=== PATIENT | male | born 1985 | race Caucasian/White ===

== ENCOUNTER 2017-02-19 21:04 | Emergency (ER) | payer OTHER ==
[~2017-02-19] VITALS: Ht 182.9 cm; Wt 102.3 kg
[2017-02-19 21:22] VITALS: TEMP 36.7; Ht 182.9 cm; Wt 102.3 kg
[2017-02-19] MEDS ORDERED: KETOROLAC TROMETHAMINE 60 MG/2 ML VIAL IM STA (21:40)
[2017-02-19] MEDS ORDERED: XYLOCAINE 1%/SOD BICARB 20 ML VIAL INFIL ONE (21:45)
[2017-02-19] MEDS ORDERED: OXYCODONE IR HOME PACK PO ONE (21:45)
[2017-02-19] MEDS ORDERED: AMOXICIL/CLAVU 875MG HOME PACK PO ONE (21:45)
[2017-02-19] MEDS ORDERED: DOXY1TAB6 PO (22:01)
[2017-02-19] MEDS ORDERED: NYSS/ PO (22:03)
[2017-02-19] MEDS ORDERED: AMOX875T PO (22:10)
[2017-02-19 22:25] VITALS: BP 106/81; PULSE 92; O2SAT 93
--- NOTE | 2017-02-19 22:30 | EMERGENCY ROOM VISIT NOTE ---
History First contact with patient: 21:27 Chief Complaint: WOUND INFECTION Stated Complaint: OPEN WOUND INFECTION, PUSSING History of Present Illness The patient is a 31 year old male who presents to the Emergency Room with complaints of rectal pain with drainage concerns for abscess for the past few days. Patient denies fever, chills, chest pain, dyspnea, abdominal pain, vomiting, diarrhea. No history similar symptoms in the past. Tetanus is current. Review of Systems See HPI for pertinent positives & negatives. A total of 10 systems reviewed and were otherwise negative. Past Medical/Surgical History None Social History Smoking Status: Current Every Day Smoker Alcohol Use: occasionally Drug Use: none Marital Status: in relationship Current/Historical Medications Scheduled Amoxicillin & Pot Clavulanate (Augmentin 875-125 mg), 1 TAB PO BID Doxycycline Hyclate (Doxycycline Hyclate), 100 MG PO BID Nystatin (Nystatin Suspension), 4 ML PO QID Allergies Coded Allergies: No Known Allergies (Unverified , 02/19/17) Physical Exam Vital Signs Date Time Temp Pulse Resp B/P Pulse Ox O2 Delivery O2 Flow Rate FiO2 02/19/17 21:22 36.7 86 16 123/81 96 Room Air Physical Exam VITALS: Vitals are noted on the nurse's note and reviewed by myself. Vital signs stable. GENERAL: Pleasant male, in no acute distress, nondiaphoretic, well-developed well-nourished. SKIN: Capillary reflex less than 2 seconds. HEENT: Normocephalic. PERRLA. EOMI. Nares patent. Mucous membranes moist. Neck is supple without nuchal rigidity. HEART: Regular rate and rhythm without murmurs gallops or rubs. LUNGS: Clear to auscultation bilaterally without wheezes, rales or rhonchi. No retractions or accessory muscle use. ABDOMEN: Positive bowel sounds x 4. Normal tympanic percussion. Soft, nontender, without masses or organomegaly. Jett sign negative. No guarding or rebound tenderness. Rectal exam: pilonidal abscess present with drainage that is erythematous and edematous 4 cm x 4 cm MUSCULOSKELETAL: No gross musculoskeletal defects. NEURO: Patient was alert and oriented to person place and time. Normal sensation to light and sharp touch. . No focal neurological deficits. Medical Decision & Procedures Medications Administered Medications (Trade) Dose Ordered Sig/Tanvir Route Start Time Stop Time Status Last Admin Dose Admin Ketorolac Tromethamine (Toradol Inj) 60 mg NOW STAT IM 02/19/17 21:40 02/19/17 21:42 DC 02/19/17 22:19 60 MG Amoxicillin/ Clavulanate Potassium (Augmentin 875MG Home Pack) 1 homepack UD ONCE PO 02/19/17 21:45 02/19/17 21:46 DC 02/19/17 22:19 1 HOMEPACK Oxycodone HCl (Roxicodone Immediate Rel 5MG Home Pack) 1 homepack UD ONCE PO 02/19/17 21:45 02/19/17 21:46 DC 02/19/17 22:19 1 HOMEPACK Procedure Incision & Drainage Indication: Abscess. Location: Pilonidal abscess Verbal consent was obtained after the risks and benefits were explained, including but not limited to bleeding, scarring, infection, pain, and bone/joint /nerve damage. At this time, the risks of the procedure are less than the risks of NOT performing the procedure. A time out was taken and the correct patient and site identified. The skin was prepped with betadine and a sterile field set. The wound was anesthetized with 10 ml of 1% lidocaine without epinephrine. The abscess cavity was entered with a number 11 blade and bloody purulent material expressed. Copious irrigation was performed using normal saline. The wound was explored for foreign bodies and none found. Debridement was not performed. Packing placed and a sterile dressing applied. Detailed wound care instructions and signs and symptoms of worsening infection reviewed with the patient. No complications and the patient tolerated the procedure well. ED Course Prior records reviewed and summarized as above. Triage Nursing notes reviewed. Additional history obtained from family. The patient's history was concerning for swelling and redness of the skin. Differential diagnosis: Etiologies such as cellulitis, abscess, MRSA infection, DVT, necrotizing fasciitis, dermatitis, drug eruption, as well as others were entertained.. Physical examination: The physical examination was consistent with abscess with surrounding cellulitis ER treatment provided: Augmentin, Toradol, home pack of OxyIR On reassessment the patient felt better. Diagnostics interpreted by me: The labs revealed a wound culture pending This appears to be isolated abscess with surrounding cellulitis. Patient was well-appearing. No fever. He was not vomiting. He was advised to have the wound rechecked and repacked in 2 days. He was advised take antibiotics as directed. He is advised to return to the ER immediately for fever, vomiting, worsening signs or symptoms or as needed.By the evaluation outlined above emergent etiologies such as necrotizing fasciitis, DVT, as well as others were deemed relatively unlikely. The pt informed about the findings as listed above. All questions were answered and pleased with the treatment. Return instructions were outlined and the patient was discharged in stable condition. Outpatient prescription management: Augmentin Referral: The patient was referred back to ER or primary care physician for follow-up in 2 to 3 days for a recheck of the current condition. Medical Decision As above Impression Primary Impression: Pilonidal abscess Departure Information Dispostion Home / Self-Care Condition GOOD Prescriptions Amoxicillin & Pot Clavulanate (Augmentin 875-125 mg) 1 Tab Tab 1 TAB PO BID, #20 TAB Prov: July Castillo .STUART 02/19/17 Forms WORK / SCHOOL INSTRUCTIONS, HOME CARE DOCUMENTATION FORM, IMPORTANT VISIT INFORMATION Patient Instructions My [facility], ED Cyst Pilonidal Infected IandD Additional Instructions Frequently change out outer gauze. Leave inner wicking inside. Amoxicillin Clavulanate (Augmentin) 875mg: Take one pill twice daily for 10 days for your infection. All antibiotics can cause diarrhea. If this occurs and you feel worse or it does not resolve in 1-2 days follow up with your doctor or return to the Emergency Department as this could be signs of serious underlying problems. Any medication can cause an allergic reaction, stop the pills immediately and return to the ER for rash, hives, breathing difficulties, or swelling. Ibuprofen(Motrin, Advil) may be used for fever or pain. Use 600mg every six hours as needed. Take with food. Avoid using more than 2400mg in a 24 hour period. Do not use 2400mg per day for more than three consecutive days without physician direction. Prolonged inappropriate use can lead to stomach upset or ulcers. (AND/OR) Acetaminophen(Tylenol) may be used for fever or pain. Use 1000mg every six hours as needed. Avoid using more than 3000mg in a 24 hour period. Rest and drink plenty of fluids. Continue current medications. Return to the ER for severe pain, persistent fevers, spreading redness, or any worsening of your condition. Follow up with your primary physician or ER within 2-3 days for a recheck of the current condition and wound repacking. Bring the packing material that was given to you in the ER to your follow-up appointment. Do not open this.
== END 2017-02-19 22:25 | disposition home or self-care (01) ==
LOC: C.EDB 21:07 → C.EDD 22:25
DX: L05.01 Pilonidal cyst with abscess (principal); F17.200 Nicotine dependence, unspecified, uncomplicated; Z79.899 Other long term (current) drug therapy

== ENCOUNTER 2017-02-21 13:46 | Emergency (ER) | payer OTHER ==
[~2017-02-21] VITALS: Ht 182.9 cm; Wt 105.0 kg
[~2017-02-21 13:46] MED LIST: AMOX875T PO; DOXY1TAB6 PO; NYSS/ PO
[2017-02-21 13:49] VITALS: BP 130/78; PULSE 98; TEMP 36.7; O2SAT 99; Ht 182.9 cm; Wt 105.0 kg
[2017-02-21] MEDS ORDERED: AMOX875T PO (13:59)
--- NOTE | 2017-02-21 14:23 | EMERGENCY ROOM VISIT NOTE ---
ED Visit Note First contact with patient: 13:57 CHIEF COMPLAINT: Packing removal HISTORY OF PRESENT ILLNESS: This 31-year-old male patient presents to the emergency department ambulatory for packing removal of a pilonidal abscess that was incised and drained 2 days ago. Previous care outlined has been followed without difficulty. The patient has been taking antibiotics as prescribed. REVIEW OF SYSTEMS: A 6 system review of systems was completed with positives and pertinent negatives listed in the HPI. ALLERGIES: No known drug allergies MEDICATIONS: No chronic medications PMH: Unchanged from previous visit. PHYSICAL EXAM: Vital Signs reviewed, see Nurse's notes. Patient is afebrile, vital signs stable. GENERAL: This is a 31-year-old male, awake, alert, well appearing, no acute distress SKIN: Packing is in place over the gluteal crest. There is no continued purulent discharge. The redness has decreased. The wound is healing well. NEURO: No sensory or motor deficits noted. EMERGENCY DEPARTMENT COURSE AND DECISION MAKING: I examined the patient. The packing was removed from the pilonidal cyst. The wound is healing well. An additional small amount of packing was placed in the wound and will be removed by the patient's significant other in 2-3 days. He was instructed to follow-up with Gen. surgery as needed for removal of the pocket. Discharge instructions reviewed. Discharged in stable condition. DIAGNOSIS: Packing removal Current/Historical Medications Scheduled Amoxicillin & Pot Clavulanate (Augmentin 875-125 mg), 1 TAB PO BID Nystatin (Nystatin Suspension), 4 ML PO QID Allergies Coded Allergies: No Known Allergies (Unverified , 02/19/17) Vital Signs Date Time Temp Pulse Resp B/P Pulse Ox O2 Delivery O2 Flow Rate FiO2 02/21/17 13:49 36.7 98 18 130/78 99 Room Air Departure Information Impression Primary Impression: Change or removal of wound packing Dispostion Home / Self-Care Condition GOOD Referrals No Doctor, Assigned (PCP) Patient Instructions My [facility] Additional Instructions Remove the remaining packing in 3 days. Continue the antibiotic as prescribed. For pain control, you can use the following [id number] medicines (if >12 yo): - Regular strength (325mg/tab) Tylenol (acetaminophen) 2 tabs every 4-6 hours as needed. Do not exceed 12 tablets in a 24 hour period. Avoid taking more than 4 grams (4000 mg) of Tylenol per day. This includes any other sources of acetaminophen you may take on a regular basis. - Regular strength (200 mg/tab) Advil (ibuprofen) 1-2 tabs every 4-6 hours as needed. Do not exceed a dose of 3200 mg per day.
== END 2017-02-21 14:35 | disposition home or self-care (01) ==
LOC: C.EDB 13:48 → C.EDD 14:35
DX: Z48.02 Encounter for removal of sutures (principal)

== ENCOUNTER → 2017-09-03 | Outpatient (CLI) | payer OTHER ==
[~2017-09-03] MED LIST changes: -DOXY1TAB6 PO
[2017-09-03 15:06] LABS: URINE APPEARANCE CLEAR (CLEAR); URINE BILIRUBIN NEG (NEG); URINE COLOR YELLOW; URINE NITRITE NEG (NEG); URINE SPECIFIC GRAVITY 1.043 (1.000-1.030); UROBILINOGEN NEG (NEG)
[2017-09-03 15:21] LABS: ALB/GLOB RATIO 1.2 (0.9-2); ALKALINE PHOSPHATASE 144 U/L (45-117); ALT/SGPT 47 U/L (12-78); AMYLASE 14 U/L (25-115); AST/SGOT 19 U/L (15-37); BLOOD UREA NITROGEN 9 mg/dl (7-18); BUN/CREATININE RATIO 9.8 (10-20); CALCIUM 9.5 mg/dl (8.5-10.1); CARBON DIOXIDE 28 mmol/L (21-32); CHLORIDE 95 mmol/L (98-107); CREATININE 0.95 mg/dl (0.60-1.40); GLUCOSE 440 mg/dl (70-99); POTASSIUM 4.1 mmol/L (3.5-5.1); SODIUM 128 mmol/L (136-145)
[2017-09-03 15:26] LABS: MANUAL MICROSCOPIC REQUIRED? YES; REVIEW REQ? NO
[2017-09-03 15:32] LABS: BETA-HYDROXYBUTYRATE 7.77 mg/dL (0.2-2.81)
[2017-09-03 15:39] LABS: URINE BACTERIA NEG (NEG); URINE RBC 0-4 /hpf (0-4)
[2017-09-04 06:24] LABS: ESTIMATED AVERAGE GLUCOSE 433 mg/dl; HA1C FLAG Normal (Normal)
== END | disposition home or self-care (01) ==
LOC: C.LAB 14:00
PROVIDERS: ATTEND Family Medicine
DX: K85.91 Acute pancreatitis with uninfected necrosis, unspecified (principal)

== ENCOUNTER 2017-09-10 11:57 | Inpatient (IN) | payer OTHER ==
[~2017-09-10] VITALS: Ht 182.9 cm; Wt 83.1 kg
[2017-09-10] MEDS ORDERED: INSU1.2I SQ (12:37)
[2017-09-10] MEDS ORDERED: NVLG SQ (12:37)
[2017-09-10] MEDS ORDERED: SODIUM CHLORIDE 0.9% 1000ML 1,000 ML IV STA (12:41)
[2017-09-10] MEDS ORDERED: SODIUM CHLORIDE 0.9% 500ML 500 ML IV STA (12:41)
[2017-09-10 13:02] LABS: BASO % 0.6 %; BASO ABS # 0.04 K/uL (0-0.2); COMPLETE YES; EOS % 5.1 %; HEMATOCRIT 42.4 % (42-52); IG% 0.2 %; LYMPH % 31.6 %; LYMPH ABS # 2.09 K/uL (1.2-3.4); MEAN CELL VOLUME 84.8 fL (80-100); MEAN CORPUSCULAR HEMOGLOBIN 30.8 pg (25-34); MEAN CORPUSCULAR HGB CONC 36.3 g/dl (32-36); NEUT % 57.5 %; PLATELET COUNT 136 K/uL (130-400); WHITE BLOOD COUNT 6.62 K/uL (4.8-10.8)
--- NOTE | 2017-09-10 13:03 | EMERGENCY ROOM VISIT NOTE ---
History Report prepared by Donte: Linda Escobedo Under the Supervision of: Dr. Mayra Mcmahan M.D. First contact with patient: 12:04 Chief Complaint: HYPERGLYCEMIA Stated Complaint: BLOOD SUGAR OVER 600, NO SODIAM IN BODY History of Present Illness The patient is a 32 year old male who presents to the Emergency Room with complaints of persistent hyperglycemia that began yesterday. The patient states that for the past several months he has not been feeling normal. He reports excessive thirst, polyuria, and dizziness. The patient states that he had blood work done recently and was found to be hyponatremic and hyperglycemic. He reports that his blood glucose was up over 600 mg/dL. The patient states that he was diagnosed with diabetes yesterday and was just started on Insulin. He states that his blood glucose levels were running around 300 mg/dL last evening. The patient states that this morning his left hand has been feeling numb. He denies any chest pain, abdominal pain, or vomiting. The patient states that he did not eat this morning. Source of History: patient Onset: yesterday Position: other (global) Symptom Intensity: 600 mg/dL Quality: other (hyperglycemia) Timing: other (persistent) Associated Symptoms: + numbness (left hand), No chest pain, No vomiting, No abdominal pain Review of Systems See HPI for pertinent positives & negatives. A total of 10 systems reviewed and were otherwise negative. Past Medical & Surgical Medical Problems: (1) Hyperglycemia due to type 2 diabetes mellitus Family History Diabetes mellitus Hypertension Social History Smoking Status: Current Every Day Smoker Alcohol Use: none Drug Use: none Marital Status: in relationship Housing Status: lives with significant other Occupation Status: unemployed Current/Historical Medications Scheduled Insulin Aspart (Novolog), SQ TIDM Insulin Glargine (Toujeo Solostar), 10 UNITS SQ HS Allergies Coded Allergies: No Known Allergies (Unverified , 09/10/17) Physical Exam Vital Signs Date Time Temp Pulse Resp B/P (MAP) Pulse Ox O2 Delivery O2 Flow Rate FiO2 09/10/17 14:25 82 20 108/70 99 09/10/17 13:42 83 09/10/17 12:00 36.7 98 20 119/81 97 Room Air Physical Exam Vital signs reviewed. General: Well-appearing male, in no significant distress. HEENT: No scleral icterus, PERRLA, dry mucous membranes, neck supple. Atraumatic. Cardiovascular: Regular rate and rhythm, no extra sounds. Pulmonary: Clear to auscultation bilaterally, normal work of breathing. Abdomen: Soft, nontender, nondistended, positive bowel sounds. Musculoskeletal: Atraumatic, no peripheral edema. Neurologic: Patient awake alert and oriented x 3, full strength in all 4 extremities. Cranial nerves 2 through 12 grossly intact. Skin: Warm, dry, no rash Medical Decision & Procedures ER Provider Diagnostic Interpretation: X-ray results as stated below per interpretation by me and the radiologist: CHEST ONE VIEW PORTABLE CLINICAL HISTORY: 32 years-old Male presenting with hyperglycemia. TECHNIQUE: Portable upright AP view of the chest was obtained. COMPARISON: None. FINDINGS: Cardiomediastinal silhouette normal. Lungs and pleural spaces clear. Osseous structures normal. Upper abdomen normal. IMPRESSION: 1. No acute cardiopulmonary disease. Electronically signed by: Karlo Waggoner M.D. 09/10/2017 1:15 PM Dictated Date/Time: 09/10/2017 1:12 PM Laboratory Results 09/10/17 12:51 Red Blood Count 5.00, Mean Corpuscular Volume 84.8, Mean Corpuscular Hemoglobin 30.8, Mean Corpuscular Hemoglobin Concent 36.3, Mean Platelet Volume 10.0, Neutrophils (%) (Auto) 57.5, Lymphocytes (%) (Auto) 31.6, Monocytes (%) (Auto) 5.0, Eosinophils (%) (Auto) 5.1, Basophils (%) (Auto) 0.6, Neutrophils # (Auto) 3.81, Lymphocytes # (Auto) 2.09, Monocytes # (Auto) 0.33, Eosinophils # (Auto) 0.34, Basophils # (Auto) 0.04 09/10/17 12:51 Test 09/10/17 12:41 09/10/17 12:51 09/10/17 14:08 White Blood Count 6.62 K/uL (4.8-10.8) Red Blood Count 5.00 M/uL (4.7-6.1) Hemoglobin 15.4 g/dL (14.0-18.0) Hematocrit 42.4 % (42-52) Mean Corpuscular Volume 84.8 fL (80-100) Mean Corpuscular Hemoglobin 30.8 pg (25-34) Mean Corpuscular Hemoglobin Concent 36.3 g/dl (32-36) Platelet Count 136 K/uL (130-400) Mean Platelet Volume 10.0 fL (7.4-10.4) Neutrophils (%) (Auto) 57.5 % Lymphocytes (%) (Auto) 31.6 % Monocytes (%) (Auto) 5.0 % Eosinophils (%) (Auto) 5.1 % Basophils (%) (Auto) 0.6 % Neutrophils # (Auto) 3.81 K/uL (1.4-6.5) Lymphocytes # (Auto) 2.09 K/uL (1.2-3.4) Monocytes # (Auto) 0.33 K/uL (0.11-0.59) Eosinophils # (Auto) 0.34 K/uL (0-0.5) Basophils # (Auto) 0.04 K/uL (0-0.2) RDW Standard Deviation 38.5 fL (36.4-46.3) RDW Coefficient of Variation 12.6 % (11.5-14.5) Immature Granulocyte % (Auto) 0.2 % Immature Granulocyte # (Auto) 0.01 K/uL (0.00-0.02) Anion Gap 7.0 mmol/L (3-11) Est Creatinine Clear Calc Drug Dose 108.8 ml/min Estimated GFR () 105.9 Estimated GFR (Non- 91.4 BUN/Creatinine Ratio 21.3 (10-20) Calcium Level 8.5 mg/dl (8.5-10.1) Magnesium Level 2.1 mg/dl (1.8-2.4) Total Bilirubin 0.4 mg/dl (0.2-1) Direct Bilirubin < 0.1 mg/dl (0-0.2) Aspartate Amino Transf (AST/SGOT) 21 U/L (15-37) Alanine Aminotransferase (ALT/SGPT) 45 U/L (12-78) Alkaline Phosphatase 194 U/L (45-117) Total Protein 6.8 gm/dl (6.4-8.2) Albumin 3.5 gm/dl (3.4-5.0) Beta-Hydroxybutyric Acid 1.80 mg/dL (0.2-2.81) Thyroid Stimulating Hormone (TSH) 1.200 uIu/ml (0.300-4.500) Venous Blood pH 7.36 (7.36-7.41) Venous Blood Partial Pressure CO2 47 mmHg (38.0-50.0) Venous Blood Partial Pressure O2 41 mmHg Venous Blood HCO3 26 mmol/L Venous Blood Oxygen Saturation 73.8 % Venous Blood Base Excess 0.2 mEq/L Laboratory results per my review. Medications Administered Medications (Trade) Dose Ordered Sig/Tanvir Route Start Time Stop Time Status Last Admin Dose Admin Sodium Chloride 500 ml @ 999 mls/hr Q31M STAT IV 09/10/17 12:41 09/10/17 13:11 DC 09/10/17 13:07 999 MLS/HR Sodium Chloride 1,000 ml @ 200 mls/hr Q5H STAT IV 09/10/17 12:41 09/10/17 17:40 09/10/17 13:08 200 MLS/HR ECG Indication: other (hyperglycemia) Rate (beats per minute): 77 Rhythm: normal sinus Findings: no acute ischemic change, no ectopy, other (J point elevation consistent with early repolarization) ED Course 1250: Past medical records reviewed. The patient was evaluated in room C1B. A complete history and physical examination was performed. 1241: Ordered Sodium Chloride 1000 ml @ 200 mls/hr IV, Sodium Chloride 500 ml @ 999 mls/hr IV. 1354: Ordered Insulin Human Regular 1 ea Protocol NA. 1409: I reevaluated the patient and he is resting comfortably. I discussed the test results with him and I discussed the treatment plan. He verbalized complete understanding and agreement. He is going to be evaluated for further treatment. 1413: I discussed the patients case with OWEN Gomez. He is going to evaluate the patient for further treatment. 1415: Ordered Glucagon 1 mg SQ, Dextrose 50 ml IV, Glucose 1 tabs PO, Glucose PO , Insulin Human Regular 250 units/Sodium Chloride 252.5 ml @ 0 mls/hr IV, Insulin Human Regular 2 unit IV. Medical Decision Differential diagnosis: Etiologies such as gastroenteritis, food borne illness, infections, appendicitis , diverticulitis, inflammatory bowel disease, obstruction, GI bleed, biliary pathology, DKA, as well as others were entertained. Medication Reconcilliation Current Medication List: was personally reviewed by me Consults Time Called: 1411 Consulting Physician: OWEN Gomez Returned Call: 1413 I discussed the patients case with TREVER Gomez. He is going to evaluate the patient for further treatment. Impression Primary Impression: Diabetes mellitus, new onset Additional Impressions: Hyperglycemia Hyponatremia Scribe Attestation The scribe's documentation has been prepared under my direction and personally reviewed by me in its entirety. I confirm that the note above accurately reflects all work, treatment, procedures, and medical decision making performed by me. Departure Information Dispostion Being Evaluated By Hospitalist Referrals Vinod Sanchez M.D. (PCP) Problem Qualifiers
--- NOTE | 2017-09-10 13:16 | DIAGNOSTIC IMAGING REPORT ---
CHEST ONE VIEW PORTABLE CLINICAL HISTORY: 32 years-old Male presenting with hyperglycemia. TECHNIQUE: Portable upright AP view of the chest was obtained. COMPARISON: None. FINDINGS: Cardiomediastinal silhouette normal. Lungs and pleural spaces clear. Osseous structures normal. Upper abdomen normal. IMPRESSION: 1. No acute cardiopulmonary disease. Electronically signed by: Karlo Waggoner M.D. 09/10/2017 1:15 PM Dictated Date/Time: 09/10/2017 1:12 PM
[2017-09-10 13:49] LABS: ALT/SGPT 45 U/L (12-78); AST/SGOT 21 U/L (15-37); BLOOD UREA NITROGEN 23 mg/dl (7-18); BUN/CREATININE RATIO 21.3 (10-20); CALCIUM 8.5 mg/dl (8.5-10.1); CARBON DIOXIDE 27 mmol/L (21-32); CHLORIDE 90 mmol/L (98-107); CREATININE 1.07 mg/dl (0.60-1.40); GLUCOSE 778 mg/dl (70-99); MAGNESIUM 2.1 mg/dl (1.8-2.4); SODIUM 124 mmol/L (136-145)
[2017-09-10] MEDS ORDERED: INSULIN IV INFUSION PROTOCOL STA ×2 (13:54→14:21)
[2017-09-10 13:56] LABS: ALKALINE PHOSPHATASE 194 U/L (45-117)
[2017-09-10] MEDS ORDERED: MODERATE STRESS LEVEL ONE ×2 (14:00→14:30)
[2017-09-10] MEDS ORDERED: HHS GOAL RANGE 250-350 mg/dl ONE ×2 (14:00→14:30)
[2017-09-10] MEDS: INSULIN REGULAR 250 UNITS in SODIUM CHLORIDE 0.9% 250ML 250 ML IV SCH ×7 (14:15→23:38)
[2017-09-10] MEDS ORDERED: GLUCAGON FOR INJ 1 MG VIAL SQ PRN (14:15)
[2017-09-10] MEDS ORDERED: DEXTROSE 50% 50 ML SYR IV PRN (14:15)
[2017-09-10] MEDS ORDERED: GLUCOSE 40% GEL 15 GM TUBE PO PRN (14:15)
[2017-09-10] MEDS ORDERED: GLUCOSE 10 TABS/TUBE PO PRN (14:15)
[2017-09-10] MEDS ORDERED: NovoLIN R BOLUS FROM BAG IV ONE (14:15)
[2017-09-10 14:20] LABS: VEN BLD GAS O2 SATURATION 73.8 %; VEN BLOOD GAS BASE EXCESS 0.2 mEq/L
[2017-09-10] MEDS ORDERED: ACETAMINOPHEN 325 MG TAB PO PRN (14:30)
[2017-09-10] MEDS ORDERED: ONDANSETRON INJ 2 MG/ML 2 ML VIAL IV PRN (14:30)
--- NOTE | 2017-09-10 14:33 | History and Physical ---
History & Physical Date & Time of Service: Sep 10, 2017 at 14:30 Chief Complaint: Blood Sugar Over 600, No Sodium In Body Primary Care Physician: Vinod Sanchez M.D. History of Present Illness Source: patient, partner This is a 32 yo M with PMHx of ruptured pseudocyst 2 yrs ago, tobacco abuse ( smoke cigarettes 1/2-3/4 ppd x 15 years), marijuana abuse, and new diagnosis of DM II after routine follow up with his PCP, Dr. Sanchez on 09/09/17. Pt notes he has lost ~ 50 lbs in the past 6 months despite a hearty appetite, and admitted to experiencing polydipsia and polyuria. Labs were drawn last Saturday which indicated a new diagnosis of DM. He was started on ISS with Novolog flexpen and Toujeo 5 U QHS yesterday. The patient notes after dinner last night he took 20 U of Novolog, and then Toujeo 5 U as instructed QHS. This morning his glucometer said "go to hospital" as reading was too high. He did take Novolog 20 U this morning, and had not eaten anything. His girlfriend who is present at bedside brought him to the ER after instructions from his PCPs office. He feels well overall currently, just slightly tired. Glucose = 778 upon admission although no AG. Here in the ER the patient was started on insulin gtt and IVFs at 200mL/hr. Ya=114 CBC wnl Alk phose noted to be elevated at 194 Past Medical/Surgical History Medical Problems: (1) Diabetes mellitus, new onset (2) Hyponatremia Surgical Hx: Pseudocyst of pancreas rupture, internal bleeding, and laproscopic repair 2 years ago requiring 19 day hospital stay at [facility] Cholecystectomy Family History Diabetes mellitus GRANDMOTHER FH: HTN (hypertension) FATHER FH: hyperlipidemia FATHER FHx: heart disease FATHER Hypertension Social History Smoking Status: Current Every Day Smoker Smokeless Tobacco Use: No Alcohol Use: none Drug Use: none, marijuana Marital Status: in relationship Housing status: lives with significant other Occupational Status: unemployed Multi-Drug Resistant Organisms History of MDRO: No Allergies Coded Allergies: No Known Allergies (Unverified , 09/10/17) Home Medications Scheduled Insulin Aspart (Novolog), SQ TIDM Insulin Glargine (Toujeo Solostar), 10 UNITS SQ HS Review of Systems Constitutional: + weight loss (50 lbs in 6 mo), + fatigue, No fever, No chills , No sweats Eyes: No worsening of vision, No redness ENT: No hearing loss, No trouble swallowing Respiratory: No cough, No sputum, No wheezing, No shortness of breath, No dyspnea on exertion Cardiovascular: No chest pain, No edema, No claudication Abdomen: No pain, No nausea, No vomiting, No diarrhea, No constipation Musculoskeletal: No joint pain, No swelling, No calf pain Genitourinary - Male: No hematuria Neurologic: No numbness/tingling, No balance problems Psychiatric: No depression symptoms Endocrine: No fatigue Integumentary: No rash, No itch Physical Exam Vital Signs Date Time Temp Pulse Resp B/P (MAP) Pulse Ox O2 Delivery O2 Flow Rate FiO2 09/10/17 13:42 83 09/10/17 12:00 36.7 98 20 119/81 97 Room Air General Appearance: WD/WN, no apparent distress Head: normocephalic, atraumatic Eyes: PERRL, EOMI ENT: hearing grossly normal, pharynx normal Neck: supple, no JVD Respiratory/Chest: lungs clear, no respiratory distress, no accessory muscle use, + pertinent finding (on RA) Cardiovascular: regular rate, rhythm, normal peripheral pulses Abdomen/GI: normal bowel sounds, non tender, soft Back: normal inspection Extremities/Musculoskelatal: no calf tenderness, no pedal edema Neurologic/Psych: alert, normal mood/affect, oriented x 3 Skin: normal color, warm/dry Diagnostics Laboratory Results Results Past 24 Hours Test 09/10/17 12:41 09/10/17 12:51 09/10/17 14:08 Range/Units White Blood Count 6.62 4.8-10.8 K/uL Red Blood Count 5.00 4.7-6.1 M/uL Hemoglobin 15.4 14.0-18.0 g/dL Hematocrit 42.4 42-52 % Mean Corpuscular Volume 84.8 80-100 fL Mean Corpuscular Hemoglobin 30.8 25-34 pg Mean Corpuscular Hemoglobin Concent 36.3 32-36 g/dl Platelet Count 136 130-400 K/uL Mean Platelet Volume 10.0 7.4-10.4 fL Neutrophils (%) (Auto) 57.5 % Lymphocytes (%) (Auto) 31.6 % Monocytes (%) (Auto) 5.0 % Eosinophils (%) (Auto) 5.1 % Basophils (%) (Auto) 0.6 % Neutrophils # (Auto) 3.81 1.4-6.5 K/uL Lymphocytes # (Auto) 2.09 1.2-3.4 K/uL Monocytes # (Auto) 0.33 0.11-0.59 K/uL Eosinophils # (Auto) 0.34 0-0.5 K/uL Basophils # (Auto) 0.04 0-0.2 K/uL RDW Standard Deviation 38.5 36.4-46.3 fL RDW Coefficient of Variation 12.6 11.5-14.5 % Immature Granulocyte % (Auto) 0.2 % Immature Granulocyte # (Auto) 0.01 0.00-0.02 K/uL Sodium Level 124 136-145 mmol/L Potassium Level 4.0 3.5-5.1 mmol/L Chloride Level 90 98-107 mmol/L Carbon Dioxide Level 27 21-32 mmol/L Anion Gap 7.0 3-11 mmol/L Blood Urea Nitrogen 23 7-18 mg/dl Creatinine 1.07 0.60-1.40 mg/dl Est Creatinine Clear Calc Drug Dose 108.8 ml/min Estimated GFR () 105.9 Estimated GFR (Non- 91.4 BUN/Creatinine Ratio 21.3 10-20 Random Glucose 778 70-99 mg/dl Calcium Level 8.5 8.5-10.1 mg/dl Magnesium Level 2.1 1.8-2.4 mg/dl Total Bilirubin 0.4 0.2-1 mg/dl Direct Bilirubin < 0.1 0-0.2 mg/dl Aspartate Amino Transf (AST/SGOT) 21 15-37 U/L Alanine Aminotransferase (ALT/SGPT) 45 12-78 U/L Alkaline Phosphatase 194 45-117 U/L Total Protein 6.8 6.4-8.2 gm/dl Albumin 3.5 3.4-5.0 gm/dl Beta-Hydroxybutyric Acid 1.80 0.2-2.81 mg/dL Thyroid Stimulating Hormone (TSH) 1.200 0.300-4.500 uIu/ml Venous Blood pH 7.36 7.36-7.41 Venous Blood Partial Pressure CO2 47 38.0-50.0 mmHg Venous Blood Partial Pressure O2 41 mmHg Venous Blood HCO3 26 mmol/L Venous Blood Oxygen Saturation 73.8 % Venous Blood Base Excess 0.2 mEq/L Diagnostic Radiology CHEST ONE VIEW PORTABLE CLINICAL HISTORY: 32 years-old Male presenting with hyperglycemia. TECHNIQUE: Portable upright AP view of the chest was obtained. COMPARISON: None. FINDINGS: Cardiomediastinal silhouette normal. Lungs and pleural spaces clear. Osseous structures normal. Upper abdomen normal. IMPRESSION: 1. No acute cardiopulmonary disease. Electronically signed by: Karlo Waggoner M.D. 09/10/2017 1:15 PM Dictated Date/Time: 09/10/2017 1:12 PM The status of this report is Signed. EKG Normal sinus rhythm Early repolarization Normal ECG No previous ECGs available Vent. rate 77 BPM OR interval 172 ms QRS duration 94 ms QT/QTc 388/439 ms P-R-T axes 43 54 54 Impression Assessment and Plan (1) Hyperglycemia due to type 2 diabetes mellitus (2) Diabetes mellitus, new onset Assessment & Plan: - Admit to med/surg - Started on insulin gtt in the ER, continue HHS protocol with goal range for moderate stress of glucose = 250-350 - Continue IVFs + KCl at 150 mL/hr. Pt received 1 L NSS at 200 ml/hr in the ER - Follow glucose, PRP per insulin gtt protocol - Check A1C in am - Hold home toujeo and ISS with novalog flex pen. Pt home meds: Toujeo 5 mg QHS was increased to 10 mg QHS today by PCP Novolog flex pen ISS - pt took 20 U this morning - Will allow diabetic diet on floor - pt has not eaten anything yet today - tire manager consult - Consider endocrinology while inpatient - should have follow up arranged as an outpatient regardless (3) Hyponatremia Assessment & Plan: - Continue on IVFs + Kcl at 150 mL/hr for now (4) Pseudocyst of pancreas Assessment & Plan: - 2 years ago underwent significant abdominal surgery due to rupture pseudocyst. At that time the medical team believed the patient had pancreatitis. Per his report, the pseudocyst was blocking ducts which led to appearance of pancreatitis. He underwent 28 blood transfusions and 11 surgeries to repair this at [facility] during a 19 day hospital stay. (5) Tobacco abuse Assessment & Plan: - Smoked 1/2- 3/4 ppd x 15 years - cessation encouraged - Order nicotine patch - Encouraged significant other to also stop smoking, or at least smoke outside of the house (6) Marijuana abuse Assessment & Plan: - Cessation encouraged Level of Care Med/Surg Resuscitation Status FULL RESUSCITATION (no heroic measures) VTE Prophylaxis VTE Risk Assessment Done? Y/N: Yes Risk Level: Very Low Given or contraindicated: Other Anticoagulation (ambulatory)
[2017-09-10] MEDS ORDERED: POLYETHYLENE (MIRALAX) 17 GM PACK PO PRN (14:45)
[2017-09-10 15:35] LABS: URINE APPEARANCE CLEAR (CLEAR); URINE BILIRUBIN NEG (NEG); URINE COLOR YELLOW; URINE NITRITE NEG (NEG); URINE SPECIFIC GRAVITY 1.038 (1.000-1.030); UROBILINOGEN NEG (NEG); ZZUR CULT IF INDIC CLEAN CATCH NO
[2017-09-10 15:40] VITALS: BP 92/60; PULSE 70; TEMP 36.5; O2SAT 96
[2017-09-10 15:49] LABS: MANUAL MICROSCOPIC REQUIRED? NO; REVIEW REQ? NO
[2017-09-10] MEDS ORDERED: NICOTINE 7 MG/24 HR TDSY TD ONE (16:15)
[2017-09-10] MEDS: NSS + 20MEQ KCL 1000ML 1,000 ML IV SCH ×2 (16:16→23:19)
[2017-09-10 16:45] VITALS: O2SAT 98; BMI 24.8
[2017-09-10] MEDS: INSULIN ASPART 100 UNITS/ML 3 ML PEN SC SCH ×2 (17:18→22:25)
[2017-09-10] MEDS ORDERED: PHARMACY GLYCEMIC MGMT CONSULT PRN (17:57)
[2017-09-10] MEDS ORDERED: INSULIN ASPART 100 UNITS/ML 3 ML PEN SC SCH (19:00)
[2017-09-10 20:00] VITALS: O2SAT 98
[2017-09-10] MEDS ORDERED: INSULIN GLARGINE SOLOSTAR 100 UNITS/ML 3 ML PEN SC ONE (20:00)
[2017-09-10] MEDS ORDERED: INSULIN GLARGINE 300 UNITS/ML INJ SC ONE (20:00)
[2017-09-10] MEDS ORDERED: INSULIN GLARGINE 300 UNIT/ML SC ONE (20:00)
[2017-09-10 23:05] VITALS: BP 91/60; PULSE 87; TEMP 36.5; O2SAT 96
[2017-09-10] MEDS ORDERED: INSULIN PROTOCOL GOAL RANGE ONE (23:30)
[2017-09-11] VITALS: O2SAT 98
[2017-09-11 00:01] LABS: BUN/CREATININE RATIO 16.8 (10-20); CALCIUM 8.2 mg/dl (8.5-10.1); CREATININE 0.86 mg/dl (0.60-1.40); PHOSPHORUS 3.1 mg/dl (2.5-4.9); POTASSIUM 3.7 mmol/L (3.5-5.1)
[2017-09-11 00:12] LABS: BETA-HYDROXYBUTYRATE 1.44 mg/dL (0.2-2.81)
[2017-09-11] MEDS: INSULIN REGULAR 250 UNITS in SODIUM CHLORIDE 0.9% 250ML 250 ML IV SCH ×4 (00:19→06:21)
[2017-09-11] MEDS ORDERED: NURSING VERBAL MED ORDER ONE (04:15)
[2017-09-11 04:24] LABS: BENZODIAZEPINE, URINE POS (NEG); COCAINE,URINE NEG (NEG); PHENCYCLIDINE, URINE NEG (NEG)
[2017-09-11] MEDS ORDERED: D5W AND 1/2NSS 1,000 ML IV SCH (04:30)
[2017-09-11 04:40] LABS: BUN/CREATININE RATIO 20.1 (10-20); CALCIUM 8.1 mg/dl (8.5-10.1); CREATININE 0.66 mg/dl (0.60-1.40); PHOSPHORUS 3.4 mg/dl (2.5-4.9)
[2017-09-11 06:32] LABS: POTASSIUM 4.3 mmol/L (3.5-5.1)
[2017-09-11 07:08] VITALS: BP 99/67; PULSE 78; TEMP 36.5; O2SAT 99
[2017-09-11 07:47] LABS: ESTIMATED AVERAGE GLUCOSE > 438 mg/dl
[2017-09-11] MEDS ORDERED: NICOTINE 7 MG/24 HR TDSY TD SCH (08:00)
[2017-09-11] MEDS ORDERED: INSULIN GLARGINE SOLOSTAR 100 UNITS/ML 3 ML PEN SC ONE (08:00)
[2017-09-11 08:15] LABS: HA1C FLAG Reference Range (Normal)
[2017-09-11] MEDS ORDERED: SODIUM CHLORIDE 0.45% 1000ML 1,000 ML IV SCH (09:00)
--- NOTE | 2017-09-11 09:28 | Pharmacy Progress Note ---
Glycemic Control Intl Consult Date of Service Sep 11, 2017. Scope Glycemic Pharmacist consulted by Dr Huynh on 09/10/17 for glycemic control and to write orders per [facility] inpatient glycemic control protocol Objective Weight (Kilograms): 83.100 Accuchecks BSG (last 24hrs): Test 09/10/17 12:51 09/10/17 16:16 09/10/17 17:03 09/10/17 18:01 Random Glucose 778 mg/dl (70-99) Bedside Glucose 305 mg/dl (70-99) 288 mg/dl (70-99) 292 mg/dl (70-99) Test 09/10/17 19:01 09/10/17 20:55 09/10/17 22:07 09/10/17 23:02 Bedside Glucose 261 mg/dl (70-99) 207 mg/dl (70-99) 280 mg/dl (70-99) 355 mg/dl (70-99) Test 09/10/17 23:20 09/10/17 23:58 09/11/17 00:59 09/11/17 02:05 Random Glucose 335 mg/dl (70-99) Bedside Glucose 318 mg/dl (70-99) 262 mg/dl (70-99) 219 mg/dl (70-99) Test 09/11/17 03:02 09/11/17 03:56 09/11/17 04:07 09/11/17 05:10 Bedside Glucose 222 mg/dl (70-99) 167 mg/dl (70-99) 162 mg/dl (70-99) Random Glucose 165 mg/dl (70-99) Test 09/11/17 06:13 09/11/17 07:06 09/11/17 07:58 09/11/17 09:05 Bedside Glucose 267 mg/dl (70-99) 255 mg/dl (70-99) 261 mg/dl (70-99) 258 mg/dl (70-99) Laboratory Data (last 24hrs) Test 09/10/17 12:51 09/10/17 23:20 09/11/17 03:56 Anion Gap 7.0 mmol/L 8.0 mmol/L 3.0 mmol/L BUN/Creatinine Ratio 21.3 16.8 20.1 Blood Urea Nitrogen 23 mg/dl 15 mg/dl 13 mg/dl Creatinine 1.07 mg/dl 0.86 mg/dl 0.66 mg/dl Potassium Level 4.0 mmol/L 3.7 mmol/L 4.3 mmol/L Sodium Level 124 mmol/L 136 mmol/L 136 mmol/L White Blood Count 6.62 K/uL Red Blood Count 5.00 M/uL Hemoglobin 15.4 g/dL Hematocrit 42.4 % Mean Corpuscular Volume 84.8 fL Mean Corpuscular Hemoglobin 30.8 pg Mean Corpuscular Hemoglobin Concent 36.3 g/dl Platelet Count 136 K/uL Mean Platelet Volume 10.0 fL Neutrophils (%) (Auto) 57.5 % Lymphocytes (%) (Auto) 31.6 % Monocytes (%) (Auto) 5.0 % Eosinophils (%) (Auto) 5.1 % Basophils (%) (Auto) 0.6 % Neutrophils # (Auto) 3.81 K/uL Lymphocytes # (Auto) 2.09 K/uL Monocytes # (Auto) 0.33 K/uL Eosinophils # (Auto) 0.34 K/uL Basophils # (Auto) 0.04 K/uL Hemoglobin A1c > 16.9 % HbA1c Test 09/11/17 03:56 Hemoglobin A1c > 16.9 % (4.5-5.6) H Recent Pertinent Medications Outpatient Anti-diabetic Regimen: * Newly diagnosed The patient is currently receiving: * Insulin infusion with rates around 1.7 units/hr Risk Factors for Insulin Resistance: * IVF: D51/2 NS @ 125 cc/hrs * Diet: type 2 diabetic diet Assessment & Plan ASSESSMENT: * Mr Mahmood is a 32 y/o M without a significant PMH who is admitted with newly diagnosed diabetes. He was given samples of Toujeo as an outpatient and was told to start at 5 units at bedtime. Patient admitted yesterday for hyperglycemic. His Toujeo was re-ordered, but unfortunately, this medication was (discarded by pharmacy last night). Patient currently on insulin infusion and has been eating throughout the night (thierry phillips). * Patient has been noncompliant by leaving room unattended, unhooking his IV site, and eating without notifying nurse. Plan to transition this morning in order to ease discharge. As patient has been eating uncontrolled, will utilize weight-based stress of 3 insulin dosing as patient will be highly insulin resistant with infusion discontinuation. Spoke to physician and transitioned IV fluids from dextrose and half normal to just half-normal. PLAN FOR INPATIENT GLYCEMIC CONTROL: * Basal insulin with LANTUS 42 units SQ x 1 then 20 units SQ BID * Correctional Insulin with NOVOLOG per scale ACHS or Q6hrs while NPO * Goal Range: Low 140 mg/dL - High 180 mg/dL * Correction Factor: 20 mg/dL/unit * Nutritional / Prandial insulin per carb ratio of 1 unit per 6 grams CHO consumed (while on insulin infusion utilize fixed carbohydrate ratio of 8) PLAN FOR DISCHARGE * Uncertain how compliant the patient will be on discharge but recommend thorough outpatient follow-up with provider. Patient would most likely tolerate at least 20 units once daily as an outpatient. This will most definitely need titrated. * Patient may also benefit from starting metformin ER 500 mg PO daily with food and titrating upwards. Thank you.
[2017-09-11] MEDS: INSULIN ASPART 100 UNITS/ML 3 ML PEN SC SCH (10:09)
--- NOTE | 2017-09-11 10:24 | Discharge Instructions ---
Discharge Instructions Date of Service Sep 11, 2017. Admission Reason for Admission: Hyperglycemia Due To Type 2 Diabetes Mellitis Discharge Discharge Diagnosis / Problem: High blood sugar Discharge Goals Goal(s): Improve function, Improve disease control, Learn about illness Activity Recommendations Activity Limitations: resume your previous activity . Instructions / Follow-Up Instructions / Follow-Up You were admitted to [facility] due to extremely high sugar levels after your diagnosis of type 2 Diabetes. You were treated with an insulin drip as well as IV fluids. We will be discharging you home on a regimen of 20 units of Lantus daily, and a medication called metformin, which works on your liver to stop the production of sugar, as well as sensitizes your body to insulin. You can take the metformin once a day, with meals, and we recommend following up with your primary care provider within the next couple of days to reassess your sugar levels and adjust your insulin as needed. We also recommend you check your sugar levels in the morning and before you go to bed, as well as before and about an hour after each meal. Please try to keep a log of these levels and show your primary care provider so that they can adjust your insulin appropriately. If you experience abdominal pain, fever, chills, chest pain or notice your sugar levels are very high, please seek medical attention. Current Hospital Diet Patient's current hospital diet: Diabetes Type 2 Diet Discharge Diet Recommended Diet: Diabetes Type 2 Diet Pending Studies Studies pending at discharge: no Laboratory Results Hemoglobin A1c Test 09/11/17 03:56 Range/Units Estimated Average Glucose > 438 mg/dl Hemoglobin A1c > 16.9 H 4.5-5.6 % Medical Emergencies . Who to Call and When: Medical Emergencies: If at any time you feel your situation is an emergency, please call 911 immediately. . Non-Emergent Contact Non-Emergency issues call your: Primary Care Provider . . "Provider Documentation" section prepared by Odette Varela. . VTE Core Measure Inpt VTE Proph given/why not?: Other Anticoagulation (ambulatory)
[2017-09-11] MEDS ORDERED: METF500T5 PO (10:26)
[2017-09-11] MEDS ORDERED: INSDGIPEN SC (10:26)
--- NOTE | 2017-09-11 10:38 | Discharge Summary ---
Discharge Summary Date of Service Sep 11, 2017. Discharge Summary Admission Date: Sep 10, 2017 at 14:28 Discharge Date: Sep 11, 2017 Discharge Disposition: Home Principal Diagnosis: Hyperglycemia Secondary to Type 2 Diabetes Mellitus Problems/Secondary Diagnoses: 1) Tobacco abuse 2) Drug abuse Procedures: CHEST ONE VIEW PORTABLE CLINICAL HISTORY: 32 years-old Male presenting with hyperglycemia. TECHNIQUE: Portable upright AP view of the chest was obtained. COMPARISON: None. FINDINGS: Cardiomediastinal silhouette normal. Lungs and pleural spaces clear. Osseous structures normal. Upper abdomen normal. IMPRESSION: 1. No acute cardiopulmonary disease. Medication Reconciliation New Medications: Insulin Glargine (Lantus Solostar) 100 Unit/Ml Inj 20 UNITS SC QPM for 30 Days, #30 PEN 3 Refills Metformin Hcl Er (Glucophage Er) 500 Mg Tab 1 TAB PO DAILY for 90 Days, #90 TAB 3 Refills Take with food. Discontinued Medications: Insulin Aspart (Novolog) 100 Units/Ml Inj SQ TIDM SLIDING SCALE Insulin Glargine (Toujeo Solostar) 300 Unit/Ml Inj 10 UNITS SQ HS Discharge Exam Review of Systems: Constitutional: No fever, No chills Respiratory: No cough Cardiovascular: No chest pain Abdomen: No pain, No nausea, No vomiting Physical Exam: General Appearance: WD/WN, no apparent distress Respiratory/Chest: chest non-tender, lungs clear, normal breath sounds, no respiratory distress, no accessory muscle use Cardiovascular: regular rate, rhythm, no edema, no gallop, no JVD, no murmur , normal peripheral pulses Abdomen / GI: normal bowel sounds, non tender, soft, no organomegaly, no pulsatile mass Hospital Course Mr. Mahmood was admitted to [facility] due to a glucose level of 778, on a background of newly diagnosed Type 2 Diabetes Mellitus. He was treated with an insulin drip and IVF and will be discharged on a regimen of: 1) 20 units Lantus daily 2) 500mg of metformin ER daily He was counselled on checking his blood sugars in the morning and before bedtime , as well as before and after every meal and keeping a log of them. He will require close follow up with his PCP as he will likely need an increase of both his Lantus and Metformin. His HbA1c in the hospital was over 16.9. Of note, his urine toxicology screen came back positive for marijuana, opiates and benzodiazepines. This should be addressed in the outpatient setting. Total Time Spent: Less than 30 minutes This includes examination of the patient, discharge planning, medication reconciliation, and communication with other providers. Discharge Instructions Please refer to the electronic Patient Visit Report (Discharge Instructions) for additional information. Additional Copies To Vinod Sanchez M.D. Resident Tracking Resident Involvement: Resident Care Provided Care Provided: Adult [facility] Medicine Reviewed: Pt Seen/Exam by Me History no concerns feeling ready to be discharged Constitutional: denies: fever Respiratory: negative: short of breath Cardiovascular: denies chest pain General Appearance: no apparent distress Respiratory: lungs clear, no respiratory distress Cardiovascular: regular rate, rhythm Neurologic/Psychiatric: alert, oriented x 3 Skin Characteristics: warm/dry Assessment/Plan Resident Physician Supervision Note: I independently interviewed and examined the patient and verified the pappas history and physical, reviewed labs and image studies, discussed the case with the resident Dr. Varela and agree with the findings and care plan. Time spent in discharge 35 min
[2017-09-11 10:55] VITALS: BP 99/67; PULSE 78; TEMP 36.5; O2SAT 99
[2017-09-11] MEDS ORDERED: DC IV INSULIN INFUSION ONE (13:30)
[2017-09-11 14:34] VITALS: BMI 24.8
[2017-09-11] MEDS ORDERED: INSULIN ASPART 100 UNITS/ML 3 ML PEN SC SCH (16:30)
[2017-09-11] MEDS ORDERED: INSULIN GLARGINE SOLOSTAR 100 UNITS/ML 3 ML PEN SC SCH (21:00)
[2017-09-12] MEDS ORDERED: INSULIN ASPART 100 UNITS/ML 3 ML PEN SC SCH
[2017-09-12] MEDS ORDERED: DC IV INSULIN INFUSION ONE (10:00)
[2017-09-13 14:51] VITALS: Ht 182.9 cm; Wt 83.1 kg
[2017-09-13 17:17] LABS: COD UR NEGATIVE NG/ML (CUTOFF=50); HYDROCOD UR NEGATIVE NG/ML (CUTOFF=50); HYDROMOR UR NEGATIVE NG/ML (CUTOFF=50); HYDROXYETHYLFLURAZEPAM CONF NEGATIVE NG/ML (CUTOFF=50); HYDROXYMIDAZOLAM NEGATIVE NG/ML (CUTOFF=50); HYDROXYTRIAZOLAM CONF NEGATIVE NG/ML (CUTOFF=50); MORPHINE UR NEGATIVE NG/ML (CUTOFF=50); NORHYDROCODONE CONF UR NEGATIVE NG/ML (CUTOFF=50); OXYMORPH UR 2510 NG/ML (CUTOFF=50); TEMAZEPAM CONF NEGATIVE NG/ML (CUTOFF=50)
== END 2017-09-11 11:15 | disposition home or self-care (01) | DRG 638 ==
LOC: C.EDB 11:59 → C.4E 14:28 → ENRESERV 15:02
PROVIDERS: ADMIT Internal Medicine; ATTEND Family Medicine
DX: E11.65 Type 2 diabetes mellitus with hyperglycemia (principal); E87.1 Hypo-osmolality and hyponatremia; K86.3 Pseudocyst of pancreas; Z83.3 Family history of diabetes mellitus; F17.210 Nicotine dependence, cigarettes, uncomplicated; F12.10 Cannabis abuse, uncomplicated

== ENCOUNTER 2017-09-23 05:23 | Emergency (ER) | payer OTHER ==
[~2017-09-23] VITALS: Ht 177.8 cm; Wt 79.2 kg
[~2017-09-23 05:23] MED LIST changes: -AMOX875T PO; +INSDGIPEN SC; +METF500T5 PO; -NYSS/ PO
[2017-09-23 05:26] VITALS: TEMP 36.4; Ht 177.8 cm; Wt 79.2 kg
[2017-09-23] MEDS ORDERED: GLC/500 PO (05:42)
--- NOTE | 2017-09-23 05:42 | EMERGENCY ROOM VISIT NOTE ---
History First contact with patient: 05:33 Chief Complaint: OVERDOSE (INTENTIONAL) Stated Complaint: HIGH ON K2 SPICE History of Present Illness The patient is a 32 year old male who presents to the Emergency Room for evaluation s/p drug ingestion. Admits smoking marijuana which may have been spiked with K2 this evening and was walking around downtown this morning. Police questioned him and he admitted to taking drugs and seeing things. Admits he may be tripping and states he should probably not talk to we don't think he is crazy. Adamant that he is not suicidal/homicidal. Admits he regularly does drugs. Recent admission for hyperglycemia and states he is taking medications as prescribed. Denies reyes, cp, sob, fevers, abdominal pain, neck stiffness, rashes, passing out or other symptoms. Denies any intentional overdose to harm himself. Has taken no recent OTC medications. States he would just like a glass of water and wait until his girlfriend gets of work at 7am to go home. Review of Systems See HPI for pertinent positives & negatives. A total of 10 systems reviewed and were otherwise negative. Past Medical/Surgical History Medical Problems: (1) Marijuana abuse (2) Pseudocyst of pancreas (3) Tobacco abuse Surgical Problems: (1) S/P cholecystectomy Family History Diabetes mellitus GRANDMOTHER FH: HTN (hypertension) FATHER FH: hyperlipidemia FATHER FHx: heart disease FATHER Hypertension Social History Smoking Status: Current Every Day Smoker Alcohol Use: none Drug Use: none, marijuana Marital Status: in relationship Housing Status: lives with significant other Occupation Status: unemployed Current/Historical Medications Scheduled Insulin Glargine (Lantus Solostar), 20 SC QPM Metformin Hcl (Glucophage), 500 MG PO DAILY Physical Exam Vital Signs Date Time Temp Pulse Resp B/P (MAP) Pulse Ox O2 Delivery O2 Flow Rate FiO2 09/23/17 06:39 78 20 132/70 99 09/23/17 05:26 36.4 128 20 125/83 97 Room Air Physical Exam GENERAL: Patient is well appearing and in no acute distress. He is just mildly anxious appearing/under influence stimulant HEENT: No acute trauma, normocephalic atraumatic, mucous membranes moist, no nasal congestion, no scleral icterus. NECK: No stridor, no adenopathy, no meningismus, trachea is midline. LUNGS: No dyspnea. Clear to auscultation and equal bilaterally. No wheeze, no rhonchi. HEART: Tachy. No murmurs, rubs, gallops appreciated. ABDOMEN: Soft, nontender, bowel sounds positive, no masses appreciated, no peritonitis. BACK: No midline tenderness, no CVA tenderness EXTREMITIES: Normal motion all extremities, no cyanosis, no edema. NEUROLOGIC: Alert and oriented, no acute motor or sensory deficits, no focal weakness, cranial nerves grossly intact. SKIN: No rash, no jaundice, no diaphoresis. PSYCH: Under influence stimulant. Denies depression, suicidal/homicidal ideation. Admits hallucinations which he attributes to drugs he smoked. Medical Decision & Procedures Laboratory Results Test 09/23/17 05:34 Bedside Glucose 198 mg/dl (70-99) Medical Decision 32 yr old male with illicit drug abuse issues arrives by police after picked up downtown and admitted drug use without sober friend/family to take him home. He is stable here though clearly a bit under influence of stimulant. Mild tachy but not significantly dehydrated by exam. ROS negative other than he admits some mild hallucinations from whatever he was smoking. He knows where he is, is looking forward to girlfriend picking him up and has insight in to what happened tonight. He denies suicidal/homicidal ideation nor depression. BSG mildly elevated, expected given recent DMII diagnosis and it is prior to taking his meds this morning. Stable, breathing comfortably and cooperative throughout ED stay. Head Trauma GCS Score: 15 Medication Reconcilliation Current Medication List: was personally reviewed by me Blood Pressure Screening Patient's blood pressure: Normal blood pressure Impression Primary Impression: Hallucination, drug-induced Additional Impressions: Drug abuse Hyperglycemia due to type 2 diabetes mellitus Departure Information Dispostion Home / Self-Care Condition GOOD Referrals Aren Garibay M.D. (PCP) Patient Instructions [facility] Additional Instructions Stop doing drugs. These are dangerous and you can never know if they are mixed with other drugs. You should talk to your loved ones and primary provider about your drug problem. If you ever feel you are at risk of harming yourself or others call 911 or return to ED. We are always here to help! Your blood sugar was moderately elevated. Make sure you are taking your medications as prescribed. Problem Qualifiers
[2017-09-23] MEDS ORDERED: INSDGIPEN SC (05:43)
[2017-09-23 06:39] VITALS: BP 132/70; PULSE 78; O2SAT 99
== END 2017-09-23 06:40 | disposition home or self-care (01) ==
LOC: C.EDB 05:24
DX: F19.151 Other psychoactive substance abuse with psychoactive substance-induced psychotic disorder with hallucinations (principal); F12.151 Cannabis abuse with psychotic disorder with hallucinations; E11.65 Type 2 diabetes mellitus with hyperglycemia; F17.200 Nicotine dependence, unspecified, uncomplicated; Z79.4 Long term (current) use of insulin; Z83.3 Family history of diabetes mellitus; Z82.49 Family history of ischemic heart disease and other diseases of the circulatory system; Z83.49 Family history of other endocrine, nutritional and metabolic diseases